=== PATIENT | male | born 1990 | race Hispanic/Latino ===

== ENCOUNTER 2018-02-20 13:24 | Outpatient (CLI) | payer OTHER | END 2018-02-20 13:25 | disposition home or self-care (01) | LOC: BICRAD 13:24 | PROVIDERS: ATTEND Internal Medicine Rheumatology | DX: M06.4 Inflammatory polyarthropathy (principal) | CPT/HCPCS: 71046 ==

== ENCOUNTER 2019-08-01 08:59 | Outpatient (CLI) | payer OTHER ==
--- NOTE | 2019-08-01 09:58 | RAD ---
Exam: 3 views lumbar spine HISTORY: Lumbar radiculopathy. Herniated nucleus pulposus. COMPARISON: none FINDINGS: Lateral neutral, lateral flexion and lateral extension views of lumbar spine demonstrate 5 lumbar type vertebra. Lumbar spine vertebral body height is maintained. No fracture. No significant loss of disc space height. In the neutral position, no spondylolisthesis. No abnormal motion upon extension or flexion. Mild degenerative changes in the distal thoracic spine at the T11-L1. IMPRESSION: No significant loss of disc space height. No spondylolisthesis or spondylolysis.
--- NOTE | 2019-08-01 11:50 | MRI ---
MRI LUMBAR SPINE WITHOUT CONTRAST: Date: 08/01/19 INDICATION: Lumbar radiculopathy. FINDINGS: The lumbar vertebra maintain height and alignment and exhibit normal signal. Disc space signal and vo lume is normally preserved at L1-2, L2-3, and L3-4 levels. There are degenerative disc signal changes at L4-5 and L5-S1 with loss of disc space at L5-S1. No disc bulge or protrusion at L1-2, L2-3, or L3-4. No central canal or foraminal stenosis at any of these levels. At L4-5, annular fissure with small central protrusion flattens the thecal sac. Facet arthrosis poste riorly. Mild to moderate central canal stenosis. At L5-S1, there is a large extruded disc/herniation centrally and paracentrally to the left with supe rior migration of disc fragment. This large extrusion compresses the thecal sac and displaces the tra versing left S1 nerve roots. Extruded disc fragment measures up to 8 mm AP dimension in the axial rhoda ne within the canal. IMPRESSION: 1. Large disc extrusion at L5-S1 with slight superior migration, more pronounced to the left, displa cing the traversing left S1 nerve root as described. 2. Small protrusion at L4-5 as described above. POS: [facility]
== END 2019-08-01 09:00 | disposition home or self-care (01) ==
LOC: SCSMRI 08:59
PROVIDERS: ATTEND Neurological Surgery
DX: M51.16 Intervertebral disc disorders with radiculopathy, lumbar region (principal); M51.27 Other intervertebral disc displacement, lumbosacral region
CPT/HCPCS: 72120; 72148